=== PATIENT | female | born 1945 | race Native Hawaiian/Other Pacific Islander ===

== ENCOUNTER 2017-06-28 09:30 | Emergency (ER) | payer OTHER, MEDICAID ==
[~2017-06-28] VITALS: Ht 165.1 cm; Wt 68.0 kg
[2017-06-28 09:30] VITALS: BP_SYST 157
--- NOTE | 2017-06-28 09:30 | NUR ---
BROUGHT BACK TO BED #8 AND TRIAGED. REPORT GIVEN TO KINSEY
--- NOTE | 2017-06-28 09:31 | NUR ---
PT PRESENTS TO ED WITH HEADACHE AND FLU-LIKE SYMPTOMS. TEMP IS 100.8. NO N/V, NO DIARRHEA. PT IS A&OX4.
--- NOTE | 2017-06-28 09:32 | NUR ---
ER at bedside examining patient.
--- NOTE | 2017-06-28 09:45 | NUR ---
Flu swab taken and given to laboratory.
[2017-06-28] MEDS ORDERED: OMEG300C3 PO (09:53)
[2017-06-28] MEDS ORDERED: ALLO100T PO (09:53)
[2017-06-28] MEDS ORDERED: ESOM40CA53 PO (09:53)
[2017-06-28] MEDS ORDERED: SYN75 PO (09:53)
[2017-06-28] MEDS ORDERED: LOSA25TA3 PO (09:53)
[2017-06-28] MEDS ORDERED: SPIR25TA PO (09:53)
[2017-06-28] MEDS ORDERED: LEVO88TA5 PO (09:53)
[2017-06-28] MEDS ORDERED: CAT.1 PO (09:53)
[2017-06-28] MEDS ORDERED: TRIA10.8 NS (09:53)
[2017-06-28] MEDS ORDERED: ATEN-41 PO (09:53)
[2017-06-28] MEDS ORDERED: LORA10TA7 PO (09:53)
[2017-06-28] MEDS ORDERED: CALC0.258 PO (09:53)
[2017-06-28] MEDS ORDERED: ETHA25TA4 PO (09:53)
--- NOTE | 2017-06-28 10:14 | NUR ---
# 22 gauge angiocath placed to RAC. Use of asceptic technique. Opsite placed over site. Blood return noted. Blood for lab drawn from site. Flushed with 10 cc of normal saline. No evidence of infiltration noted. Patient tolerated well.
[2017-06-28] MEDS ORDERED: ACETAMINOPHEN 500 MG TABLET PO ONE (10:15)
[2017-06-28] MEDS ORDERED: NACL 0.9% 1,000 ML IV ONE (10:15)
[2017-06-28 10:24] LABS: BASOPHILS % (AUTO) 0.3 % (0.0-2.0); EOSINOPHILS % (AUTO) 0.4 % (0.0-4.0); HEMATOCRIT 36.3 % (36-48); HEMOGLOBIN 11.8 g/dL (12.0-16.0); LYMPHOCYTES # (AUTO) 0.9 K/uL (1.0-5.5); LYMPHOCYTES % (AUTO) 14.5 % (20.5-51.5); MEAN CORPUSCULAR HEMOGLOBIN 27 pg (27-31); MEAN CORPUSCULAR HGB CONC 33 % (32-36); MEAN CORPUSCULAR VOLUME 85 fL (79.0-98.0); MONOCYTES # (AUTO) 0.5 K/uL (0.0-1.0); MONOCYTES % (AUTO) 7.8 % (1.7-9.3); PLATELET COUNT (AUTO) 174 K/uL (130-430); RED CELL DISTRIBUTION WIDTH 14.9 % (9.0-15.0); WHITE BLOOD COUNT (AUTO) 6.4 K/uL (4.8-10.8)
[2017-06-28 10:35] LABS: ANION GAP 10 (5-15); CALCIUM 10.4 mg/dL (8.4-11.0); CHLORIDE 100 mmol/L (98-107); GLUCOSE 112 mg/dL (70-99); POTASSIUM 4.4 mmol/L (3.5-5.1); SODIUM SERUM 135 mmol/L (136-145); UREA NITROGEN, BLOOD 24 mg/dL (8-21)
[2017-06-28 10:37] LABS: GFR AFRICAN AMERICAN 41 mL/min (>90)
[2017-06-28 10:39] LABS: INR 1.1 (0.8-1.2); PROTHROMBIN TIME 10.8 SECS (9.5-12.5)
[2017-06-28 10:44] LABS: ALANINE AMINOTRANSFERASE 21 U/L (12-78); AMYLASE 129 U/L (0-100); ASPARTATE AMINOTRANSFERASE 23 U/L (10-37); LIPASE 300 U/L (73-393); TOTAL BILIRUBIN 0.5 mg/dL (0.0-1.0)
[2017-06-28] MEDS ORDERED: METOCLOPRAMIDE HCL 10 MG/2 ML VIAL IVP ONE ×2 (10:45→12:15)
--- NOTE | 2017-06-28 12:31 | NUR ---
Pt resting at this time, VSS, medicated with reglan as ordered.
[2017-06-28 13:14] VITALS: BP_SYST 136
--- NOTE | 2017-06-28 13:14 | NUR ---
Patient given written and verbal discharge instructions and verbalizes understanding. ER MD discussed with patient the results and treatment provided. Patient in stable condition. ID arm band removed. IV catheter removed intact and dressing applied, no active bleeding. Rx of Zofran, Mor[place], Tamiflu given. Patient educated on pain management and to follow up with PMD. Pain Scale 0. Opportunity for questions provided and answered.
== END 2017-06-28 13:14 | disposition home or self-care (01) ==
LOC: SED 09:30
DX: J11.1 Influenza due to unidentified influenza virus with other respiratory manifestations (principal); R51 Headache; I10 Essential (primary) hypertension; Z90.89 Acquired absence of other organs; Z88.0 Allergy status to penicillin; Z88.1 Allergy status to other antibiotic agents; Z88.5 Allergy status to narcotic agent; Z91.013 Allergy to seafood; Z79.899 Other long term (current) drug therapy
CPT/HCPCS: 36415; 70450; 71010; 80053; 82150; 83605; 83690; 84484; 85025; 85610; 86710; 87040; 93005; 96361; 96374; 99285; J2765; J7030